=== PATIENT | female | born 1950 | race Caucasian/White ===

== ENCOUNTER → 2017-03-14 | Outpatient (CLI) | payer MEDICARE ==
[2017-03-14 19:26] LABS: Basophils # (A) 0.1 k/uL (0-0.2); Basophils % (A) 1 %; CH 33.5; CHCM 33.4; Eosinophils # (A) 0.1 k/uL (0-0.7); Eosinophils % (A) 2 %; HDW 2.41; HGB 15.3 gm/dL (11.4-16.0); Luc # (Auto) 0.12; Luc % (Auto) 2; Lymphocytes # (A) 1.9 k/uL (1.0-4.8); Lymphocytes % (A) 34 %; MCH 32.9 pg (25.0-35.0); MCHC 32.6 g/dL (31.0-37.0); MCV 100.9 fL (80.0-100.0); Mean Platelet Volume 8.1; Monocytes # (A) 0.5 k/uL (0-1.0); Monocytes % (A) 8 %; Neutrophils % (A) 53 %; RBC 4.66 m/uL (3.80-5.40); RDW 13.4 % (11.5-15.5); WBC 5.7 k/uL (3.8-10.6)
[2017-03-14 19:37] LABS: ALT 40 U/L (9-52); AST 54 U/L (14-36); Alkaline Phosphatase 163 U/L (38-126); Anion Gap 10 mmol/L; Blood Urea Nitrogen 8 mg/dL (7-17); Calcium 9.4 mg/dL (8.4-10.2); Carbon Dioxide 24 mmol/L (22-30); Chloride 103 mmol/L (98-107); Cholesterol 232 mg/dL (<200); Glucose 101 mg/dL (74-99); HDL Cholesterol 48 mg/dL (40-60); Non-African American GFR(MDRD) >60 (>60 ml/min/1.73 sqM); Potassium 4.1 mmol/L (3.5-5.1); Sodium 137 mmol/L (137-145); Total Bilirubin 1.6 mg/dL (0.2-1.3); Total Protein 7.9 g/dL (6.3-8.2)
== END | disposition home or self-care (01) ==
LOC: MMGSC 15:04
PROVIDERS: ATTEND Family Medicine
DX: Z00.00 Encounter for general adult medical examination without abnormal findings (principal)
CPT/HCPCS: 36415; 80053; 80061; 82977; 84439; 84443; 85025

== ENCOUNTER → 2017-04-06 | Outpatient (CLI) | payer MEDICARE ==
--- NOTE | 2017-04-06 07:43 | US ---
EXAMINATION TYPE: US abdomen complete DATE OF EXAM: 04/06/2017 COMPARISON: US CLINICAL HISTORY: R94.5 Elevated liver function test. Elevated LFT's EXAM MEASUREMENTS: Liver Length: 20.3 cm Gallbladder Wall: 0.3 cm CBD: 0.4 cm Spleen: 11.6 cm Right Kidney: 10.2 x 4.1 x 4.2 cm Left Kidney: 10.1 x 5.4 x 4.9 cm Pancreas: wnl, tail obscured by overlying bowel gas Liver: Enlarged, grossly heterogeneous Gallbladder: Probable sludge Evidence for sonographic Huggins's sign: No CBD: wnl Spleen: wnl Right Kidney: Cortical thinning Left Kidney: wnl Upper IVC: wnl Abd Aorta: Proximal portion wnl, mid and distal gassed out The liver is enlarged and heterogenous. The intrahepatic portion of the IVC and proximal abdominal ao rta are within normal limits. There is no evidence of gallbladder sludge. Common bile duct is unrema rkable. The visualized portions of the pancreas are homogenous. The spleen is unremarkable. Kidney s are symmetric and free of hydronephrosis. No renal lesions are seen. IMPRESSION: 1. Gallbladder sludge. 2. Probable fatty hepatic infiltration versus diffuse hepatocellular disease.
== END ==
LOC: RADUSWWP 06:58
PROVIDERS: ATTEND Family Medicine
DX: K83.8 Other specified diseases of biliary tract (principal); R94.5 Abnormal results of liver function studies
CPT/HCPCS: 76700

== ENCOUNTER → 2017-04-19 | Outpatient (CLI) | payer MEDICARE ==
[2017-04-19 20:36] LABS: Albumin 3.8 g/dL (3.5-5.0); Bilirubin, Delta 0.4 mg/dL (0.0-0.2); Bilirubin,Unconjugated 0.7 mg/dL (0.0-1.1); Total Bilirubin 1.1 mg/dL (0.2-1.3); Total Protein 7.6 g/dL (6.3-8.2)
== END | disposition home or self-care (01) ==
LOC: MMGSC 11:58
PROVIDERS: ATTEND Family Medicine
DX: E78.5 Hyperlipidemia, unspecified (principal); R79.89 Other specified abnormal findings of blood chemistry; M79.1 Myalgia
CPT/HCPCS: 36415; 80061; 80076; 82550; 82977

== ENCOUNTER → 2018-01-16 | Outpatient (CLI) | payer MEDICARE ==
--- NOTE | 2018-01-17 01:23 | MR ---
EXAMINATION TYPE: MR lumbar spine wo/w con DATE OF EXAM: 01/16/2018 COMPARISON: 04/04/2011 HISTORY: Low back pain TECHNIQUE: Multiplanar, multisequence images of the lumbar spine were acquired utilizing 7.5 mL intravenous Gada vist gadolinium contrast. Lumbar vertebra have normal alignment. Disc spaces are fairly normal for age. There are on the T1 kehinde ges rounded areas of increased signal in the lumbar vertebral bodies consistent with fatty marrow rep lacement. There is no lumbar disc herniation. There is minimal facet arthropathy and mild lateral rec ess stenosis at L4-5. Sacroiliac joints are intact. There is no lumbar paraspinal mass. The contrast images show no pathologic enhancement. There is some mild neural foraminal narrowing at L3-4 bilatera lly due to facet arthropathy. There is small posterior disc herniation at L2-3 on the right side with slight neural foraminal impingement. I see no focal bone destruction. There is left-sided laminectomy defect at L3-4. I see no pathologic enhancement. IMPRESSION: Left-sided laminectomy at L3-4 is unchanged. There is small posterior left-sided L3-4 disc herniation old exam is not seen on today's exam and could relate to desiccation. No spinal stenosis seen. There is small right-sided L2-3 lumbar disc herniation that is increased compared to old exam.
== END | disposition home or self-care (01) ==
LOC: RADMRIMAIN 20:36
PROVIDERS: ATTEND Family Medicine
DX: M51.26 Other intervertebral disc displacement, lumbar region (principal); Z98.890 Other specified postprocedural states
CPT/HCPCS: 72158; A9581

== ENCOUNTER → 2019-07-23 | Outpatient (CLI) | payer MEDICARE ==
--- NOTE | 2019-07-31 09:55 | USB ---
Reason for exam: clinical finding. History: Patient is postmenopausal. Family history of breast cancer in sister at age 54 and breast cancer in maternal sister at age 42. Took estrogen for 4 years beginning at age 43. US Breast Limited BILAT Technologist: Madelin Cook Right complete breast ultrasound includes all four quadrants, the retroareolar region and axilla. Finding demonstrates a 0.4 x 0.4 x 0.3cm circular, shadowing fat necrosis on mammogram at 9 o'clock and a 1.1 x 0.7 x 0.6cm oval, shadowing fat necrosis at 9:30. Other smaller similar appearing masses at 10 and 11 o'clock on the right. Left limited breast ultrasound including focal area of concern, retroareolar and axilla demonstrates an approximately 2.6cm area of irregular hypoechogenicity. Possibly dense tissue although increased in density compared to mammogram of 2017, biopsy recommended. These results were verbally communicated with the patient and result sheet given to the patient on 07/23/19. ASSESSMENT: Suspicious, BI-RAD 4 RECOMMENDATION: Ultrasound core biopsy of the left breast. (Left at 2 o'clock) Stereotactic core biopsy of both breasts.
== END | disposition home or self-care (01) ==
LOC: RADUSWWP 10:17
PROVIDERS: ATTEND Surgery
DX: R92.8 Other abnormal and inconclusive findings on diagnostic imaging of breast (principal)

== ENCOUNTER → 2019-07-23 | Outpatient (CLI) | payer MEDICARE ==
[2019-07-23 08:23] VITALS: BP 102/77; PULSE 76; RESP 18; TEMP 97.9
--- NOTE | 2019-07-23 09:07 | P.GSHP ---
History of Present Illness H&P Date: 07/23/19 Chief Complaint: Abnormal mammogram right breast Julisa is a 68-year-old white female who presents for breast evaluation. She had a bilateral mammogram performed on 07/02/2019. This revealed increasing indeterminate calcifications in the upper outer half of the right breast and additional views were recommended. Additional views revealed extensive regional open segmental appearing microcalcifications to the 8 to 11 o'clock position of the right breast and this was considered BIRADS 4/5, biopsy was recommended. She feels a lump in the right breast which has been present for two years. There is no pain. The patient states it has not increased in size. She does not feel anything of concern in the left breast. No nipple discharge or changes. of concern. She has no history of any infections or trauma to the breast. No history of any surgery in the breast. 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 She is a candidate for liver transplant. As part of the workup it was necessary that she have a Pap smear and a bilateral mammogram performed. The mammogram as well showed the area of concern. She is awaiting further evaluation for liver transplant depending on the biopsy of the breast. Family History: 1. sister at 45 with breast cancer 2. sister: at 55 with breast cancer 3. mother: stomach cancer Hormonal History: menarche: 13 , breast fed: no, first born at 24 menopasue: hysterectomy at 46, no cancer took ovaries, bleeding Hormones: none, testosterone few months after hysterectoy Surgical history: 1. Total abdominal hysterectomy for bleeding 2.cervical spine surgery 3. lower back surgery 4. two C sections 5. nose surgery/fracture Medical History: 1. RIOS/ 14 months (went for colonoscopy and told had cirrhosis) on liver transplant list at this time; MELD score 10, has had paracentesis 4 times in past 12 months, has needed to be transfused 1 time 2. GERD 3. essential tremors 4. anxiety/depression Social History: smoke: none alcohol: stopped 14 months ago, used to drink a glass of wine/day drugs: none - Constitutional Constitutional: Reports sweats - EENT Eyes: denies blurred vision, denies pain Ears: deny: decreased hearing, tinnitus Ears, nose, mouth and throat: Denies headache, Denies sore throat - Breasts Breasts: bilateral: as per HPI - Cardiovascular Cardiovascular: Denies chest pain, Denies shortness of breath - Respiratory Respiratory: Denies cough, Denies 7 - Gastrointestinal Comment: RIOS - Genitourinary (Female) Genitourinary: Denies dysuria, Denies hematuria - Menstruation Menstruation: Reports post hysterectomy - Musculoskeletal Comment: osteoarthritis/ degenerative disc disease - Integumentary Integumentary: Denies pruritus, Denies rash - Neurological Neurological: Reports weakness, Denies numbness - Psychiatric Psychiatric: Denies anxiety, Denies depression - Endocrine Endocrine: Reports fatigue, Reports weight change - Hematologic/Lymphatic Comment: bruises easily - Allergic/Immunologic Allergic/Immunologic: Reports as per HPI Past Medical History History of Any Multi-Drug Resistant Organisms: None Reported Past Surgical History: Back Surgery, Hysterectomy Smoking Status: Never smoker Medications and Allergies Home Medications Medication Instructions Recorded Confirmed Type Alendronate Sodium/Vitamin D3 1 each PO Q7DAYS 07/23/19 07/23/19 History [Fosamax Plus D 70 mg-2,800 Iu] Calcium Carbonate [Calcium] 600 mg PO DAILY 07/23/19 07/23/19 History Citalopram Hydrobromide [CeleXA] 20 mg PO DAILY 07/23/19 07/23/19 History Ferrous Sulfate [Feosol] 325 mg PO DAILY 07/23/19 07/23/19 History Furosemide [Lasix] 40 mg PO BID 07/23/19 07/23/19 History Hydroxyapatite Vinay 10 mg PO Q6H PRN 07/23/19 07/23/19 History Lactulose 3 ml PO BID 07/23/19 07/23/19 History Primidone [Mysoline] 50 mg PO BID 07/23/19 07/23/19 History Rifaximin [Xifaxan] 550 mg PO BID 07/23/19 07/23/19 History Spironolactone 100 mg PO BID 07/23/19 07/23/19 History Zinc 50 mg PO DAILY 07/23/19 07/23/19 History Allergies Allergy/AdvReac Type Severity Reaction Status Date / Time amoxicillin [From Augmentin] AdvReac Rash/Hives Unverified 07/23/19 08:24 clavulanic acid AdvReac Rash/Hives Unverified 07/23/19 08:24 [From Augmentin] codeine AdvReac Rash/Hives Unverified 07/23/19 08:24 erythromycin base AdvReac Rash/Hives Unverified 07/23/19 08:24 Sulfa (Sulfonamide AdvReac Rash/Hives Unverified 07/23/19 08:24 Antibiotics) Surgical - Exam Vital Signs Temp Pulse Resp BP Pulse Ox 97.9 F 76 18 102/77 100 07/23/19 08:19 07/23/19 08:19 07/23/19 08:19 07/23/19 08:19 07/23/19 08:19 BMI 26.9 - General well developed, well nourished, no distress - Eyes normal ocular movement - ENT no hearing loss, no congestion - Neck well healed scar no masses, trachea midline - Respiratory normal respiratory effort, clear to auscultation - Cardiovascular Rhythm: regular Heart Sounds: normal: S1, S2 - Abdomen no fluid in abdomen on todays exam Abdomen: soft, non tender, no guarding, no rigid, no rebound - Integumentary Telangiectasias over her chest - Neurologic no disoriented, no combative - Musculoskeletal balance concerns - Psychiatric oriented to time, oriented to person, oriented to place, speech is normal, memory intact breast exam: BRA: 40DD inspection: No nipple inversion or skin lesions of concern palpation: Right breast: Multi-positional exam increased nodularity at the 11 o'clock p osition lateral to the nipple areolar complex, fibrocystic changes no other dominant masses or nodules of concern Right axilla: No adenopathy of concern Left breast: Multi-position on exam no dominant masses or nodules of concern Left axilla: Shotty adenopathy Results Mammograms reviewed with , bilateral microcalcifications greater on the right Assessment and Plan Assessment: Impression: 1. Bilateral mammographic abnormality 2. Palpable lesion right breast 3. Palpable left axillary adenopathy 4. RIOS/pending liver transplant 5. Essential tremor Plan: 1. Right breast ultrasound of palpable abnormality, left axillary ultrasound of palpable lymph nodes 2. Bilateral. Radiographic guided biopsies of both breast/right ultrasound- guided core biopsy depending on results of ultrasound or stereotactic biopsy, left stereotactic core biopsy of microcalcifications 3. Prior to any biopsy PT, PTT, INR, and CBC will be obtained Risks and benefits of procedure discussed with the patient. Risks include bleeding, infection, reaction to the anesthetic. She understands and wishes to proceed. She is at increased risk for bleeding secondary to her liver disease. She understands and wishes to proceed. CC: Nadeem Painter Encounter: 50 minutes > 50% of time in planning and counselling. Time with Patient: Greater than 30
== END | disposition home or self-care (01) ==
LOC: WWCWWP 08:01
PROVIDERS: ATTEND Surgery
DX: Z53.9 Procedure and treatment not carried out, unspecified reason (principal)

== ENCOUNTER → 2019-08-05 | Outpatient (CLI) | payer MEDICARE ==
[2019-08-05 09:30] LABS: Anisocytosis Slight; HGB 13.7 gm/dL (11.4-16.0); MCH 31.4 pg (25.0-35.0); MCHC 33.3 g/dL (31.0-37.0); MCV 94.4 fL (80.0-100.0); Mean Platelet Volume 8.4; Platelet Count 124 k/uL (150-450); RBC 4.34 m/uL (3.80-5.40); RDW 16.6 % (11.5-15.5); WBC 3.4 k/uL (3.8-10.6)
[2019-08-05 09:36] LABS: INR 1.2 (<1.2); Partial Thromboplastin Time 27.6 sec (22.0-30.0)
== END | disposition home or self-care (01) ==
LOC: LABWHC1 09:03
PROVIDERS: ATTEND Surgery
DX: N18.6 End stage renal disease (principal)
CPT/HCPCS: 36415; 85027; 85610; 85730

== ENCOUNTER → 2019-08-06 | Day surgery (SDC) | payer MEDICARE ==
[2019-08-06 08:38] VITALS: RESP 16
--- NOTE | 2019-08-06 10:18 | USB ---
Discontinued ultrasound biopsy left breast HISTORY: Abnormal ultrasound ultrasound dated 07/23/2019 Patient presented for possible ultrasound of the left breast 2:00 position. At the 2:00 position ther e is normal-appearing fibroglandular tissue. No distinct mass is identified. This was discussed with the patient and with Dr. Mac Hay. Six-month follow-up follow-up ultrasound is recommended as a pr ecautionary measure. IMPRESSION: Probably benign BI-RADS 3 Recommendation: 6 month follow-up ultrasound left breast
--- NOTE | 2019-08-06 11:46 | P.PCN ---
Date of Procedure: 08/06/19 Preoperative Diagnosis: Bilateral mammographic abnormalities Postoperative Diagnosis: Same Procedure(s) Performed: Bilateral stereotactic core breast biopsies Anesthesia: local Surgeon: Felecia Thompson Estimated Blood Loss (ml): 1 Pathology: other (bilateral bresat tissue) Condition: stable Disposition: same day Indications for Procedure: Bilateral mammographic abnormalities Operative Findings: Microcalcifications noted in bilateral breast specimens Description of Procedure: The patient is a 68-year-old white female who presents for evaluation secondary to bilateral mammographic abnormalities. After review with radiology was recommended she undergo bilateral breast stereotactic core biopsies, as well as a left breast ultrasound core biopsy. When she presents to the department today her films are reviewed with Dr. abi michaels only and he has opted not to do an ultrasound core biopsy at this time. The patient understands this. She will have a repeat left breast ultrasound to evaluate the area in the future. The risks and benefits of stereotactic core biopsy were discussed with the patient she understands and wishes to proceed. The patient was taken to the stereotactic core biopsy wound. The right breast was approached initially. A lateral to medial approach was utilized. A film was obtained and the area of concern was identified. The area was targeted. The skin was prepped using Betadine. A 19-gauge vacuum-assisted core rotating biopsy needle was driven to the correct coordinates. 15 mL of 1% lidocaine were utilized to anesthetize the area 5 of which had epinephrine. 13 core biopsies were obtained. Radiograph of the specimen revealed the area of concern had been obtained. A tri-marked marker was placed. The left breast was then approached. A CC from above approach was utilized and lesion of concern was identified however there were several vessels in the area of which were of concern. Therefore a lateral to medial approach was utilized. The lesion was identified and targeted. The coordinates were transmitted. The skin was prepped using Betadine. A petite needle 9-gauge vacuum-assisted was driven to the correct coordinates. It was fired. 15 cc of 1% lidocaine 5 with epinephrine were used to anesthetize the area. Post fire films revealed that the needle was questionably in the incorrect x-coordinate and the needle was repositioned. It was felt that we would sampled the area. 12 core biopsies were obtained and radiograph did not reveal the calcifications of concern. A tremor clip was placed. The lesion was then targeted in the CC from above approach. The vessels seemed to be out of the area of concern at this time. Approximately 5 mL of 1% lidocaine was used for this procedure. 7 core biopsies were obtained. Radiograph of the specimen revealed microca lcifications as well as the tri-anna which had been placed at the prior sampling. The patient tolerated the procedure in stable condition. The specimens were sent to pathology. The patient will follow-up with Dr. Watts next week. Impression/Plan 1. Bilateral radiographic abnormalities microcalcifications 2. Lesion in the right breast is very diffuse calcifications if this is not malignant or premalignant with question if this is discordant and will review with radiology 3. Lesion in the left breast appears to be adequately sampled 4. Ultrasound lesion of the left breast felt to be benign at this time for Dr. Pop and to be followed conservatively CC: Jamie Zheng
[2019-08-06 11:50] VITALS: BP 113/65; PULSE 82; TEMP 97.7
--- NOTE | 2019-08-14 08:59 | MM ---
MG Stereo VAD BX LT Radiologist: Sriram Pop M.D. Radiologis Surgeon: Janie Thompson M.D. EXAMINATION TYPE: MG stereo VAD BX LT DATE OF EXAM: 08/06/2019 COMPARISON: NONE CLINICAL HISTORY: TECHNIQUE: Stereotactic guided core biopsy of breast. FINDINGS: The procedure of stereotactic guided core biopsy was explained to the patient. Benefits, alternatives, and risks were discussed. An informed consent was then obtained. [facility]. Shortness pathway was approach. I performed the localization, then surgeon, performed the remainder of the procedure. A vacuum assisted biopsy gun was used to obtain multiple core samples. The patient tolerated the procedure well without any immediate complication. The patient was kept in the radiology department for short stay after the procedure and then discharged home in stable condition. Targeted calcifications are identified in specimen mammogram. Post biopsy mammogram shows the clip to appear in satisfactory position relative to the targeted area of concern on the preprocedure images. IMPRESSION: SUCCESSFUL, UNCOMPLICATED STEREOTACTIC GUIDED CORE BIOPSY OF AREA OF CONCERN IN THE BREAST, FULL PATHOLOGY RESULTS TO FOLLOW. Pathology Results: Benign A. RIGHT BREAST, STEREOTACTIC CORE BIOPSY: Scar and fat necrosis with nodular calcifications, histiocytes and background fibrocystic changes. Negative for malignancy. B. LEFT BREAST, SITE A, STEREOTACTIC CORE BIOPSY: Fibrocystic changes including cysts, fibrosis and apocrine metaplasia. C. LEFT BREAST, SITE B, CORE BIOPSY: Scar and fat necrosis with nodular calcifications, histiocytes and background fibrocystic changes. Negative for malignancy. RECOMMENDATION: Follow-up diagnostic mammogram of both breasts in 6 months. Ultrasound of the left breast in 6 months. 6 month follow up ultrasound on the left at 2 o'clock. [facility]
--- NOTE | 2019-08-14 09:00 | MM ---
MG Stereo VAD BX RT Radiologist: Sriram Pop M.D. Radiologis EXAMINATION TYPE: MG stereo VAD BX RT DATE OF EXAM: 08/06/2019 COMPARISON: NONE CLINICAL HISTORY: TECHNIQUE: Stereotactic guided core biopsy of breast. FINDINGS: The procedure of stereotactic guided core biopsy was explained to the patient. Benefits, alternatives, and risks were discussed. An informed consent was then obtained. [facility]. Shortness pathway was approach. I performed the localization, then surgeon, performed the remainder of the procedure. A vacuum assisted biopsy gun was used to obtain multiple core samples. The patient tolerated the procedure well without any immediate complication. The patient was kept in the radiology department for short stay after the procedure and then discharged home in stable condition. Targeted calcifications are identified in specimen mammogram. Post biopsy mammogram shows the clip to appear in satisfactory position relative to the targeted area of concern on the preprocedure images. IMPRESSION: SUCCESSFUL, UNCOMPLICATED STEREOTACTIC GUIDED CORE BIOPSY OF AREA OF CONCERN IN THE BREAST, FULL PATHOLOGY RESULTS TO FOLLOW. [facility] confidentiality statement: "The information contained in this communication, including attachments, is confidential, may be privileged, and is intended only for the use of the named recipient(s). Unauthorized use, disclosure, forwarding or copying is strictly prohibited and may be unlawful. If you have received this communication in error, please notify me IMMEDIATELY at the phone number or pager listed above." Pathology Results: Benign A. RIGHT BREAST, STEREOTACTIC CORE BIOPSY: Scar and fat necrosis with nodular calcifications, histiocytes and background fibrocystic changes. Negative for malignancy. B. LEFT BREAST, SITE A, STEREOTACTIC CORE BIOPSY: Fibrocystic changes including cysts, fibrosis and apocrine metaplasia. C. LEFT BREAST, SITE B, CORE BIOPSY: Scar and fat necrosis with nodular calcifications, histiocytes and background fibrocystic changes. Negative for malignancy. RECOMMENDATION: Follow-up diagnostic mammogram of both breasts in 6 months. 6 month follow up ultrasound on the left at 2 o'clock. [facility]
== END ==
LOC: RADMAMWWP 08:15 → EDSTATUS 09:00
PROVIDERS: ATTEND Surgery
DX: R92.8 Other abnormal and inconclusive findings on diagnostic imaging of breast (principal); R92.1 Mammographic calcification found on diagnostic imaging of breast; N64.1 Fat necrosis of breast; N60.12 Diffuse cystic mastopathy of left breast
CPT/HCPCS: 88305; 19081; 19082 ×2; 76641; A4648; J2001

== ENCOUNTER → 2019-08-13 | Outpatient (CLI) | payer MEDICARE ==
[2019-08-13 09:19] VITALS: BP 131/65; PULSE 82; RESP 18; TEMP 98.2
--- NOTE | 2019-08-13 09:39 | P.PN ---
Subjective Progress Note Date: 08/13/19 Principal diagnosis: patient status post bilateral stero-biopsy Julisa is a 68-year-old white female who is status post bilateral stereotactic core biopsies. Platelet this revealed scar and fat necrosis with nodular calcifications. Left breast site a revealed fibrocystic changes including cyst, fibrosis and apocrine metaplasia. Site B reveal scar and fat necrosis with nodular calcifications. Histiocytes and background fibrocystic changes were noted. Negative for malignancy. The patient's radiographs have been reviewed with Dr. Sosa from radiology and she feels that these findings are concordant. Additionally there were noted to be somewhat linear calcifications which she feels are sequestrated nature and do not warrant further biopsy or investigation at this time. The patient was initially scheduled for an ultrasound-guided core biopsy of an area in the left breast which on the day of the biopsy was not felt to be suspicious. The patient understands the results of all of these findings. She is here with her . The patient does not have any complaints related to the procedure. Objective - Vital Signs Vital signs: Vital Signs Temp 98.2 F 08/13/19 09:03 Pulse 82 08/13/19 09:03 Resp 18 08/13/19 09:03 BP 131/65 08/13/19 09:03 Pulse Ox 100 08/13/19 09:03 Intake & Output 08/12/19 08/13/19 08/13/19 18:59 06:59 18:59 Weight 60.781 kg - Constitutional General appearance: Present: average body habitus - EENT Eyes: Present: EOMI ENT: Present: hearing grossly normal - Neck Neck: Present: normal ROM - Respiratory Respiratory: bilateral: CTA - Cardiovascular Heart sounds: normal: S1, S2 - Integumentary Integumentary: Present: normal turgor - Musculoskeletal Musculoskeletal: Present: gait normal - Psychiatric Psychiatric: Present: A&O x's 3, appropriate affect, intact judgment & insight - Additional findings Additional findings: Breasts: Bilateral breast mild ecchymosis at biopsy sites No evidence of infection Assessment and Plan Assessment: Impression: 1. status post bilateral breast stero biopsy, pathology benign 2. liver disease Plan: 1. repeat bilateral mammogram in 6 months 2. left breast ultrasoud in 6 months 3. no evidence of breast cancer at this time CC: Dr. Nadeem Painter encounter 15 minutes Time with Patient: Less than 30
== END ==
LOC: WWCWWP 08:52
PROVIDERS: ATTEND Surgery
DX: Z53.9 Procedure and treatment not carried out, unspecified reason (principal)

== ENCOUNTER → 2020-02-18 | Outpatient (CLI) | payer MEDICARE ==
--- NOTE | 2020-02-18 13:21 | MM ---
Reason for exam: additional evaluation requested from prior study. Last mammogram was performed 2 years and 11 months ago. History: Patient is postmenopausal. Family history of breast cancer in sister at age 54 and breast cancer in maternal sister at age 42. Benign MG stereo VAD BX LT of the left breast, August 06, 2019. Benign MG stereo VAD BX RT of the right breast, August 06, 2019. US discontinued breast bx LT of the left breast, August 06, 2019. Took estrogen for 4 years beginning at age 43. Physical Findings: Nurse did not find any significant physical abnormalities on exam. MG 3D Diag Mammo W/Cad MATTHEW Bilateral CC and MLO view(s) were taken. Prior study comparison: March 29, 2017, bilateral MG 3d diag mammo w/cad MATTHEW. March 01, 2012, mammogram. There are scattered fibroglandular densities. Previous mammotome biopsy in the right and left breast. There is chronic nodularity in the right breast. Global asymmetry left upper outer quadrant unchanged. Extensive punctate and secretory calcifications redemonstrated greater in the right breast. Stable fat necrosis and some oil cyst calcifications anteriorly on the right. These results were verbally communicated with the patient and result sheet given to the patient on 02/18/20. ASSESSMENT: Incomplete: need additional imaging evaluation, BI-RAD 0 RECOMMENDATION: Ultrasound of the left breast. (as ordered)
--- NOTE | 2020-02-18 13:22 | USB ---
Reason for exam: follow-up at short interval from prior study. History: Patient is postmenopausal. Family history of breast cancer in sister at age 54 and breast cancer in maternal sister at age 42. Benign MG stereo VAD BX LT of the left breast, August 06, 2019. Benign MG stereo VAD BX RT of the right breast, August 06, 2019. US discontinued breast bx LT of the left breast, August 06, 2019. Took estrogen for 4 years beginning at age 43. US Breast Limited LT Left limited breast ultrasound including focal area of concern, retroareolar and axilla demonstrates no cystic or solid lesion seen. Scanned 12-3 o'clock. Dense tissue is demonstrated. These results were verbally communicated with the patient and result sheet given to the patient on 02/18/20. ASSESSMENT: Probably benign, BI-RAD 3 RECOMMENDATION: Follow-up diagnostic mammogram of both breasts in 1 year.
== END | disposition home or self-care (01) ==
LOC: RADMAMWWP 09:36
PROVIDERS: ATTEND Surgery
DX: R92.8 Other abnormal and inconclusive findings on diagnostic imaging of breast (principal)
CPT/HCPCS: 77066; 76642; G0279; 77062